=== PATIENT | male | born 1945 | race Caucasian/White ===

== ENCOUNTER 2021-07-15 15:47 | Day surgery (SDC) | payer MEDICARE, OTHER ==
[~2021-07-15 15:47] MED LIST: ACET325 PO; FAMO20 PO; TAMS.4ER PO; VITAMIN D35000 UNIT PO
== END 2021-07-15 23:51 | disposition home or self-care (01) ==
LOC: VAS 15:47 → MHTC 15:47 → VAS 15:56 → MHTC 15:56 → VAS 23:51
DX: I87.2 Venous insufficiency (chronic) (peripheral) (principal)
CPT/HCPCS: 93971

== ENCOUNTER 2023-01-09 06:12 | Day surgery (SDC) | payer MEDICARE, OTHER ==
[~2023-01-09] VITALS: Ht 182.9 cm; Wt 108.8 kg
[2023-01-09] MEDS ORDERED: LISI10 PO (07:04)
[2023-01-09] MEDS ORDERED: CENTRUM SILVER1 EAC2 PO (07:04)
[2023-01-09] MEDS ORDERED: TURMERIC500 M2 PO (07:05)
--- NOTE | 2023-01-09 09:19 | NUR ---
01/09/23 0919 Deirdre Westfall PILLOW UNDER HEAD, HIP ROLL, ARMS SECURED ON PADDED ARM BOARDS.
== END 2023-01-09 10:05 | disposition home or self-care (01) ==
LOC: ORSCSDS 06:12
PROVIDERS: Podiatrist Foot & Ankle Surgery
PROC: 0SGM04Z Fusion of Right Metatarsal-Phalangeal Joint with Internal Fixation Device, Open Approach (ICD-10-PCS; principal; 2023-01-09 07:30)
DX: M20.21 Hallux rigidus, right foot (principal); I10 Essential (primary) hypertension; E03.9 Hypothyroidism, unspecified; K21.9 Gastro-esophageal reflux disease without esophagitis; Z79.899 Other long term (current) drug therapy; I25.10 Atherosclerotic heart disease of native coronary artery without angina pectoris
CPT/HCPCS: A9270; C1713; J0171; J0690; J1100; J1885; J2250; J2405; J2704; J2795; J3010; J7120

== ENCOUNTER 2024-10-10 07:46 | Day surgery (SDC) | payer MEDICARE, OTHER ==
[~2024-10-10] VITALS: Ht 182.9 cm; Wt 104.3 kg
[2024-10-10] VITALS (12 sets, daily range): BP systolic 97–141; BP diastolic 69–88
[~2024-10-10 07:46] MED LIST changes: +CENTRUM SILVER1 EAC2 PO; +LISI10 PO; +NS 1,000 ML BAG IR SCH; +NS 500 ML IV SCH; +TURMERIC500 M2 PO
[2024-10-10] MEDS ORDERED: propofoL 20 ML IV ONE (08:11)
--- NOTE | 2024-10-10 09:00 | NUR ---
10/10/24 0900 Hong Grigsby CONFIRMED AND REVIEWED H&P, MEDCICATIONS, ALLERGIES, MEDICAL HISTORY, RESPIRATORY HISTORY, VITAL SIGNS, 3-LEAD EKG, CONSENTS, AND PHYSICIAN ORDERS. PATIENT CONFIRMS NPO STATUS AND AGREES WITH SCHEDULED PROCEDURE. MONITOR INTACT WITH CONTINUOUS PULSE OXIMETRY, CAPNOGRAPHY, 3-LEAD EKG, INTERMITTENT BP. SUPPLEMENTAL O2 TO BE TITRATED THROUGHOUT PROCEDURE TO MAINTAIN O2 SATURATION ABOVE 90%. PATIENT DETERMINED TO BE ASA APPROPRIATE FOR PROPOFOL SEDATION PRIOR TO START OF PROCEDURE BY DR. ALVAREZ.
--- NOTE | 2024-10-10 09:41 | NUR ---
Patient up to Ambulate independently. Gait steady. Discharge instructions reviewed with patient. Patient verbalizes understanding. Copy given to patient to take home, [facility]. Patient States Post-Procedure ride home has been arranged. Discharged via wheelchair to private car for ride home.
== END 2024-10-10 09:42 | disposition home or self-care (01) ==
LOC: ORSCMMR 07:46 → ORD 08:30 → ORSCMMR 09:42
PROVIDERS: Internal Medicine Gastroenterology
PROC: 0DBK8ZX Excision of Ascending Colon, Via Natural or Artificial Opening Endoscopic, Diagnostic (ICD-10-PCS; principal; 2024-10-10 08:30)
DX: Z85.038 Personal history of other malignant neoplasm of large intestine (principal); Z86.0102 Personal history of hyperplastic colon polyps; Z90.49 Acquired absence of other specified parts of digestive tract; D12.2 Benign neoplasm of ascending colon; I10 Essential (primary) hypertension; K21.9 Gastro-esophageal reflux disease without esophagitis; Z79.899 Other long term (current) drug therapy
CPT/HCPCS: 88305; J2704; J7040